=== PATIENT | female | born 1965 | race Caucasian/White ===

== ENCOUNTER 2017-06-01 01:27 | Emergency (ER) | payer MEDICAID ==
[~2017-06-01] VITALS: Ht 170.2 cm; Wt 72.0 kg
[~2017-06-01 01:27] MED LIST: ACYCLOVIR; AMOX500T2; BENZ1TAB7; FEROSUL; HYDR-523; HYDROXIZINE; LORATIDINE; PROM6.25; SERT25TA; SINGULAIR; VENTOLIN; [UNRECOGNIZED DRUG - OTHER]
[2017-06-01 07:34] LABS: CLARITY URINE CLEAR (CLEAR); COLOR URINE YELLOW (YELLOW); GLUCOSE URINE NEGATIVE (NEGATIVE); KETONES URINE NEGATIVE (NEGATIVE); LEUKOCYTE ESTERASE URINE 2+ (NEGATIVE); NITRITE URINE NEGATIVE (NEGATIVE); OCCULT BLOOD URINE NEGATIVE (NEGATIVE); PH URINE 6.5 (4.5-8.0); PROTEIN URINE NEGATIVE (NEGATIVE); SPECIFIC GRAVITY URINE 1.012 (1.005-1.030); UROBILINOGEN URINE 0.2 E.U./dL (0.2-1.0)
[2017-06-01 07:54] LABS: HEMATOCRIT. 36.5 % (36.0-48.0); HEMOGLOBIN. 12.4 g/dL (12.0-16.0); MEAN CORPUSCULAR VOLUME 91.8 fL (81.0-99.0); MEAN PLATELET VOLUME 9.5 fl (7.4-10.4); PLATELET 192 x1000/uL (130-400); RED BLOOD CELL COUNT 3.98 mill/uL (4.2-5.4); RED CELL DISTRIBUTION WIDTH 14.8 % (11.6-14.6)
[2017-06-01 07:54] LABS: *AMPHETAMINES SCREEN URINE NEGATIVE (NEGATIVE); *BARBITURATES SCREEN URINE NEGATIVE (NEGATIVE); *BENZODIAZEPINES SCREEN URINE NEGATIVE (NEGATIVE); *COCAINE SCREEN URINE NEGATIVE (NEGATIVE); CANNABINOID URINE SCREEN NEGATIVE (NEGATIVE); METHADONE URINE SCREEN NEGATIVE (NEGATIVE); OPIATES URINE SCREEN NEGATIVE (NEGATIVE); PHENCYCLIDINE URINE SCREEN NEGATIVE (NEGATIVE)
[2017-06-01 08:09] LABS: CARBON DIOXIDE 31 mEq/L (21-32); CHLORIDE 105 mEq/L (98-107)
[2017-06-01 08:23] LABS: PLATELET ESTIMATE NORMAL
[2017-06-02 16:48] VITALS: BP 128/68
== END 2017-06-02 18:31 | disposition short-term general hospital (02) ==
LOC: ER 01:28
DX: F32.9 Major depressive disorder, single episode, unspecified (principal); R45.851 Suicidal ideations; F20.9 Schizophrenia, unspecified; I10 Essential (primary) hypertension; J44.9 Chronic obstructive pulmonary disease, unspecified; F31.9 Bipolar disorder, unspecified; Z88.5 Allergy status to narcotic agent; Z88.8 Allergy status to other drugs, medicaments and biological substances; Z88.1 Allergy status to other antibiotic agents; Z91.011 Allergy to milk products
CPT/HCPCS: 36415; 80053; 80305; 80307; 80329; 81001; 85025; 99285; G0482

== ENCOUNTER 2017-07-22 19:05 | Emergency (ER) | payer MEDICAID ==
[~2017-07-22] VITALS: Ht 160 cm; Wt 60.0 kg
[2017-07-23] MEDS ORDERED: LORAZEPAM 1MG TABLET PO ONE (00:30)
[2017-07-23 01:13] LABS: BASOPHILS % 0.8 % (0.0-2.0); EOSINOPHILS % 12.2 % (0.0-5.0); HEMATOCRIT. 40.1 % (36.0-48.0); HEMOGLOBIN. 13.5 g/dL (12.0-16.0); LYMPHOCYTES % 31.6 % (20.0-50.0); MEAN CORPUSCULAR HEMOGLOBIN 31.1 pg (28.0-32.0); MEAN CORPUSCULAR VOLUME 92.2 fL (81.0-99.0); MONOCYTES % 10.7 % (2.0-8.0); NEUTROPHILS % 44.7 % (40.0-76.0); PLATELET 180 x1000/uL (130-400); RED BLOOD CELL COUNT 4.35 mill/uL (4.2-5.4); RED CELL DISTRIBUTION WIDTH 15.4 % (11.6-14.6)
[2017-07-23 01:18] LABS: HCG SCREEN NEGATIVE
[2017-07-23 01:19] LABS: CHLORIDE 102 mEq/L (98-107)
[2017-07-23 01:24] LABS: CARBON DIOXIDE 31 mEq/L (21-32); ETHANOL BLOOD < 10 mg/dL
[2017-07-23 03:10] LABS: CLARITY URINE CLEAR (CLEAR); COLOR URINE YELLOW (YELLOW); GLUCOSE URINE NEGATIVE (NEGATIVE); KETONES URINE NEGATIVE (NEGATIVE); LEUKOCYTE ESTERASE URINE TRACE (NEGATIVE); NITRITE URINE NEGATIVE (NEGATIVE); OCCULT BLOOD URINE NEGATIVE (NEGATIVE); PROTEIN URINE NEGATIVE (NEGATIVE); UROBILINOGEN URINE 0.2 E.U./dL (0.2-1.0)
[2017-07-23 03:20] LABS: *AMPHETAMINES SCREEN URINE NEGATIVE (NEGATIVE); *BARBITURATES SCREEN URINE NEGATIVE (NEGATIVE); *BENZODIAZEPINES SCREEN URINE NEGATIVE (NEGATIVE); CANNABINOID URINE SCREEN NEGATIVE (NEGATIVE); METHADONE URINE SCREEN NEGATIVE (NEGATIVE); OPIATES URINE SCREEN NEGATIVE (NEGATIVE); PHENCYCLIDINE URINE SCREEN NEGATIVE (NEGATIVE)
[2017-07-23 04:36] LABS: *COCAINE SCREEN URINE NEGATIVE (NEGATIVE)
[2017-07-24] VITALS: BP 101/59
== END 2017-07-24 02:10 ==
LOC: ER 19:05
DX: F31.9 Bipolar disorder, unspecified (principal); R45.851 Suicidal ideations; J45.909 Unspecified asthma, uncomplicated; J44.9 Chronic obstructive pulmonary disease, unspecified; I10 Essential (primary) hypertension; Z88.8 Allergy status to other drugs, medicaments and biological substances; Z88.6 Allergy status to analgesic agent; Z91.011 Allergy to milk products
CPT/HCPCS: 36415; 80048; 80305; 80307; 80329; 81001; 84703; 85025; 99285; G0482

== ENCOUNTER 2017-11-26 06:40 | Emergency (ER) | payer MEDICAID ==
[~2017-11-26] VITALS: Ht 157.5 cm; Wt 87.0 kg
[2017-11-26] MEDS ORDERED: ALBUTEROL (0.083%) 2.5MG/3ML NEB HHN STA (12:56)
[2017-11-26] MEDS ORDERED: IPRATROPIUM BROMIDE (0.02%) 0.5MG/2.5ML NEB HHN STA (12:56)
[2017-11-26] MEDS ORDERED: PREDNISONE 20MG TABLET PO STA (12:56)
[2017-11-26] MEDS ORDERED: KETOROLAC 60MG/2ML VIAL IM ONE (14:30)
[2017-11-26 16:32] VITALS: BP 113/69
== END 2017-11-26 16:41 | disposition home or self-care (01) ==
LOC: ER 06:40
DX: J06.9 Acute upper respiratory infection, unspecified (principal); J44.9 Chronic obstructive pulmonary disease, unspecified; M54.30 Sciatica, unspecified side; F20.9 Schizophrenia, unspecified; I10 Essential (primary) hypertension; F31.9 Bipolar disorder, unspecified; Z88.8 Allergy status to other drugs, medicaments and biological substances; Z88.4 Allergy status to anesthetic agent; Z91.011 Allergy to milk products
CPT/HCPCS: 71046; 87804; 94640; 96372; 99285; J1885; J7512; Z7610

== ENCOUNTER 2017-12-10 18:29 | Emergency (ER) | payer MEDICAID ==
[~2017-12-10] VITALS: Ht 167.6 cm; Wt 90.0 kg
[2017-12-10 18:36] VITALS: BP 122/76
[2017-12-10] MEDS ORDERED: LIDOCAINE HCL 1% 20ML VIAL (Pyxis) INJ MC ONE (19:00)
[2017-12-10] MEDS ORDERED: BACITRACIN ZINC OINT UDPKT TOP ONE (19:00)
== END 2017-12-10 19:58 | disposition home or self-care (01) ==
LOC: ER 18:44
DX: L60.0 Ingrowing nail (principal); L03.032 Cellulitis of left toe; I10 Essential (primary) hypertension; F20.9 Schizophrenia, unspecified; J44.9 Chronic obstructive pulmonary disease, unspecified; F31.9 Bipolar disorder, unspecified; Z88.8 Allergy status to other drugs, medicaments and biological substances; Z88.4 Allergy status to anesthetic agent; Z91.011 Allergy to milk products
CPT/HCPCS: 10060; 11730; 11732; 99284; J3490; X7700; Z7610; 11750

== ENCOUNTER 2018-08-08 14:53 | Emergency (ER) | payer MEDICARE ==
[~2018-08-08] VITALS: Ht 162.6 cm; Wt 91.0 kg
[~2018-08-08 14:53] MED LIST changes: -ACYCLOVIR; +AMOX250S70 PO; -AMOX500T2; -BENZ1TAB7; +ESCI5TAB MT; -FEROSUL; +FURO-151 MT; -HYDR-523; -HYDROXIZINE; -LORATIDINE; +OXCA150T5 MT; -PROM6.25; +RISO02 MT; -SERT25TA; -SINGULAIR; -VENTOLIN; +VENTOLIN INH; -[UNRECOGNIZED DRUG - OTHER]
[2018-08-08 15:17] VITALS: BP 160/88
== END 2018-08-08 19:44 | disposition left against medical advice (07) ==
LOC: ER 14:53
DX: R09.81 Nasal congestion (principal); Z53.21 Procedure and treatment not carried out due to patient leaving prior to being seen by health care provider

== ENCOUNTER 2018-08-09 00:53 | Emergency (ER) | payer MEDICARE ==
[~2018-08-09] VITALS: Ht 162.6 cm; Wt 91.0 kg
[2018-08-09] MEDS ORDERED: ALBUTEROL (0.083%) 2.5MG/3ML NEB HHN STA (02:50)
[2018-08-09 04:45] VITALS: BP 147/52
== END 2018-08-09 04:46 | disposition home or self-care (01) ==
LOC: ER 00:53
DX: J44.1 Chronic obstructive pulmonary disease with (acute) exacerbation (principal); Z91.011 Allergy to milk products; Z88.8 Allergy status to other drugs, medicaments and biological substances; Z79.899 Other long term (current) drug therapy
CPT/HCPCS: 71045; 99283; J7611